=== PATIENT | female | born 2000 | race Caucasian/White ===

== ENCOUNTER → 2020-09-09 13:40 | Outpatient (CLI) | payer SELFPAY | DX: Z34.90 Encounter for supervision of normal pregnancy, unspecified, unspecified trimester (principal) | CPT/HCPCS: 36415 ==

== ENCOUNTER 2020-10-29 19:25 | Outpatient (CLI) | payer SELFPAY ==
[2020-10-29 19:41] VITALS: PULSE 118; TEMP 37.2
[2020-10-29 19:42] VITALS: BP 130/79; PULSE 118
[2020-10-29 20:12] VITALS: BMI 32.8
[2020-10-29 20:26] LABS: Color, Urine Yellow (Yellow); Glucose, Dipstick Normal (Normal); Ketone-Dipstick Negative (Negative); Leukocyte Esterase-Dipstick 100 /ul (Negative); Nitrite-Dipstick Negative (Negative); Occult Blood-Urine Negative /ul (Negative); Protein-Dipstick Negative (Negative); Urine Bilirubin Dipstick Negative (Negative); Urine Clarity Clear (Clear); Urine Urobilinogen Normal (Normal); Urine pH 6.5 (5.0 - 8.0)
--- NOTE | 2020-11-02 08:20 | OB.TRI.HP_ITS ---
History of Present Illness Was patient seen by the physician?: No Reason For Visit: UTI SYMPTOMS Date of Service: 10/29/20 Final ROSE: 03/08/21 Gestational age: 21 5/7 Allergies No Known Allergies Allergy (Verified 10/29/20 20:14) Laboratory Studies: Laboratory Tests 10/29/20 Range/Units 20:20 Urine Color Yellow (Yellow) Urine Clarity Clear (Clear) Urine pH 6.5 (5.0 - 8.0) Ur Specific [place] 1.020 (1.002-1.030) Urine Protein Negative (Negative) mg/dl Urine Glucose (UA) Normal (Normal) mg/dl Urine Ketones Negative (Negative) mg/dl Urine Occult Blood Negative (Negative) /ul Urine Nitrite Negative (Negative) Urine Bilirubin Negative (Negative) mg/dL Urine Urobilinogen Normal (Normal) mg/dl Ur Leukocyte Esterase 100 H (Negative) /ul Physical Exam Vitals: Vital Signs Temp Pulse BP 98.9 F 118 H 130/79 H 10/29/20 19:41 10/29/20 19:42 10/29/20 19:42 Impression/Plan 20 YOF @ 21+ WEEKS High risk multigravida with history of urinary tract infections presents today complaining contractions. No evidence of obstetrical issue. Urinalysis and urine culture sent. heart tones are positive by Doppler. Follow-up in our office or at her home physician office as needed.
== END 2020-10-29 20:25 | disposition home or self-care (01) ==
LOC: WPOUT 19:36 → WP 19:37
PROVIDERS: Referring Provider Obstetrics & Gynecology; Visit Provider Obstetrics & Gynecology
DX: O62.9 Abnormality of forces of labor, unspecified (principal); O09.92 Supervision of high risk pregnancy, unspecified, second trimester; Z3A.21 21 weeks gestation of pregnancy; Z87.440 Personal history of urinary (tract) infections
CPT/HCPCS: 81002; 87086; 99218; G0378